=== PATIENT | female | born 1970 | race Hispanic/Latino ===

== ENCOUNTER → 2020-01-23 | Day surgery (SDC) | payer OTHER ==
[2020-01-20 13:33] LABS: BASOPHILS # (AUTO) 0.1 (0.0-0.1); BASOPHILS % 0.8 % (0.0-1.0); EOSINOPHILS # (AUTO) 0.3 (0.0-0.4); EOSINOPHILS % 3.8 % (0.0-6.0); HEMATOCRIT 40.2 % (34.2-44.1); HEMOGLOBIN 13.4 g/dL (12.0-16.0); LYMPHOCYTES # (AUTO) 2.7 (1.0-3.2); MEAN CORPUSCULAR HEMOGLOBIN 30.1 pg (28-32); MEAN CORPUSCULAR HGB CONC 33.3 g/dL (31-35); MEAN CORPUSCULAR VOLUME 90.3 fL (81-99); MONOCYTES # (AUTO) 0.5 (0.2-0.8); MONOCYTES % 6.9 % (4.4-11.3); NEUTROPHILS # (AUTO) 3.9 (2.1-6.9); NEUTROPHILS % 52.2 % (38.7-80.0); PLATELET COUNT 336 x10e3/uL (140-360); RED BLOOD COUNT 4.45 x10e6/uL (3.6-5.1); RED CELL DISTRIBUTION WIDTH 12.1 % (11.7-14.4)
[2020-01-20 13:45] LABS: INR 0.9; PROTHROMBIN TIME 12.7 seconds (11.9-14.5)
[2020-01-20 13:46] LABS: PARTIAL THROMBOPLASTIN TIME 27.3 seconds (23.8-35.5)
[2020-01-20 13:50] LABS: ANION GAP 13.5 mmol/L (8-16); BLOOD UREA NITROGEN 11 mg/dL (7-26); BUN/CREATININE RATIO 16 (6-25); CALCIUM 9.8 mg/dL (8.4-10.2); CARBON DIOXIDE 28 mmol/L (22-29); CHLORIDE 104 mmol/L (98-107); CREATININE, SERUM 0.68 mg/dL (0.57-1.11); EST GLOMERULAR FILTRATION RATE > 60 ML/MIN (60-); GLUCOSE 88 mg/dL (74-118); POTASSIUM 4.5 mmol/L (3.5-5.1); SODIUM 141 mmol/L (136-145)
--- NOTE | 2020-01-20 14:40 | Diagnostic Imaging Report ---
X-ray chest PA and lateral Comparison: None History: Preop Findings: Normal central airways, cardiomediastinal silhouettes, diaphragm, pleura. 3 mm nodule in the right lower lung zone. Visualized skeleton unremarkable. Upper abdomen unremarkable. Impression: No acute cardiopulmonary disease. Tiny nodular density in the right lung base. A follow-up chest x-ray in 6 months may be considered. Signed by: Nilson Gramajo MD on 01/20/2020 2:37 PM
[~2020-01-23] MED LIST: ACETAMINOPHEN 1000 MG/100 ML 100 ML IV ONE; ACETAMINOPHEN 325 MG TAB PO PRN; ALBUTEROL/IPRATROPIUM 3 ML NEB ONE; ATROPINE SULFATE 1 MG/ML VIAL ONE; BACITRACIN 50,000 UNIT VIAL ONE; BUPIVACAINE 0.25%/EPI 30ML SDV INJ ONE; CARISOPRODOL 350 MG TAB PO PRN; CEFAZOLIN SOD 1 GM/NS 50ML 50 ML IV ONE; CEFAZOLIN SOD 1 GM/NS 50ML 50 ML IV SCH; DEXAMETHASONE SOD PHOS INJ 4 MG/ML VIAL ONE; EPHEDRINE SULFATE INJ 50 MG/ML VIAL ONE; ETOMIDATE 2 MG/ML 10 ML INJ IV ONE; FENTANYL CITRATE/PF 100MCG/2 ML INJ ONE; GABAPENTIN 300 MG CAP PO SCH; GABAPENTIN300 MG PO; HYDROMORPHONE 2MG/ML 2 MG/ML ML IV PRN; LACTATED RINGER'S 1,000 ML IV SCH; LIDOCAINE HCL (LTA) 4 ML SOLN ONE; LIDOCAINE HCL 2% LOCAL INJ 5 ML SDV VIAL INJ ONE; MAGNESIUM/ALUMINUM/SIMETHICONE 30 ML UDC PO PRN; METHOCARBAMOL 750 MG TAB PO SCH; METHOCARBAMOL750 MG PO; MIDAZOLAM HCL 2 MG/2 ML VIAL ONE; MORPHINE SULFATE 5 MG/ML VIAL IM PRN; NAPROXEN 250 MG TAB PO PRN; NAPROXEN250 MG PO; NEOSTIGMINE 1 MG/ML 10ML VIAL ONE; ONDANSETRON HCL INJ 2MG/ML 2ML 2 MG/ML VIAL IV PRN; ONDANSETRON HCL INJ 2MG/ML 2ML 2 MG/ML VIAL ONE; OXYCODONE/ACETAMINOPHEN 5-325 1 EACH TABLET PO PRN; PROMETHAZINE HCL (IM) 25 MG/ML VIAL IM PRN; PROPOFOL IV EMULSION 10 MG/ML 20 ML VIAL ONE; ROCURONIUM BROMIDE 10 MG/ML 5ML VIAL IV ONE; SEVOFLURANE INHAL SOLN 250 ML PEN BTL ONE; THROMBIN FOR SOLN 5,000 UNIT VIAL ONE; TRAMADOL HCL 50 MG TAB PO SCH; ULTRAM50 MG PO; ZOLPIDEM TARTRATE 5 MG TAB PO PRN
[2020-01-23 12:55] VITALS: BP 122/79
--- NOTE | 2020-01-23 17:35 | Operative Report ---
DATE OF PROCEDURE: 01/23/2020 SURGEON: Juan Mcdaniels MD PREOPERATIVE DIAGNOSIS: Right L5-S1 disk herniation with radiculopathy, M51.17. POSTOPERATIVE DIAGNOSIS: Right L5-S1 disk herniation with radiculopathy, M51.17. PROCEDURE: Right L5-S1 laminotomy, medial facetectomy, and microsurgical diskectomy, [id number]. ANESTHESIA: General. INDICATIONS: The patient is a woman, who presents with an intractable right S1 radiculopathy due to a right paracentral L5-S1 disk herniation. She was taken to surgery for microsurgical diskectomy. PROCEDURE IN DETAIL: After induction of general anesthesia, the patient was placed on the operating table in prone position over Brando frame. Lumbar region was prepped and draped in sterile fashion. A small midline incision was created over the L5-S1 region. The lumbar fascia was opened to the right of midline and a subperiosteal dissection was carried out to expose the right side of L5-S1 lamina and the medial aspect of the facet joint. The 2nd x-ray confirmed correct localization. The operating microscope was brought in. A high-speed drill equipped with logan bur was used to drill the inferior aspect of the lamina of L5 and the medial rim of the inferior articular process of L5 and the superior rim of the lamina of S1. The ligamentum flavum was resected. The dural sac and the S1 nerve root were exposed. The nerve root was markedly compressed by the underlying disk herniation. The nerve root was slightly retracted medially to expose the disk herniation. The posterior longitudinal ligament was incised with a #11 blade and the herniated disk material was retrieved and removed with micro ball probe and pituitary instruments. The opening into the annulus of this was then enlarged with a #11 blade and the loose contents of the L5-S1 disk were evacuated with curettes and pituitary instruments. The ball probe was then passed into the ventral epidural space and the ventral pressure was extruded the subligamentous portion of the disk herniation, which was then removed. Meticulous hemostasis was secured with bipolar electrocautery. The wound was irrigated with bacitracin solution and closed with 0 and 2-0 Vicryl sutures. The skin was closed with 3-0 Monocryl sutures in subcuticular fashion. Steri-Strips and dressing were applied. The patient was awakened, extubated, and taken to postanesthesia care unit in stable condition. No intraoperative complications were encountered. Estimated blood loss was minimal. Juan Mcdaniels MD PP/JOHANN /[id number]
== END | disposition home or self-care (01) ==
LOC: OR 06:45
PROVIDERS: ATTEND Neurological Surgery
DX: M51.17 Intervertebral disc disorders with radiculopathy, lumbosacral region (principal); K21.9 Gastro-esophageal reflux disease without esophagitis; M54.9 Dorsalgia, unspecified; R00.1 Bradycardia, unspecified; Z01.810 Encounter for preprocedural cardiovascular examination; Z01.812 Encounter for preprocedural laboratory examination; Z01.818 Encounter for other preprocedural examination; Z11.59 Encounter for screening for other viral diseases
CPT/HCPCS: 36415; 63047; 71046; 72020; 80048; 85025; 85610; 85730; 86850; 86900; 87635; 88304; 93005; J0131; J0461; J0690; J1100; J1170; J2001; J2250; J2405; J2704; J2710; J3010